=== PATIENT | male | born 1975 | race African-American/Black ===

== ENCOUNTER 2018-08-11 16:53 | Emergency (ER) | payer OTHER ==
[~2018-08-11] VITALS: Ht 170.2 cm; Wt 110.0 kg
[2018-08-11 17:04] VITALS: BP 132/100; PULSE 101; RESP 18; Ht 170.2 cm; Wt 110.0 kg
--- NOTE | 2018-08-11 17:29 | PSY ---
Date/Time of Note Date/Time of Note DATE: 08/11/18 TIME: 19:15 Psychiatric Subjective Eval Consent Pt consented to telemedicine: Yes Subjective Evaluation Patient location: emergency Chief Complaint: BIB RA FOR EVAL OF LEG SWELLING X 8MOS. [employer] W/ PT. NO SI OR HI History of present illness HPI: 43 yo male with ho psychosis, reports he is having AH of "chanting." Per nurse, pt called 911 reporting si. Pt adamantly denies si to MD before MD asked pt any questions. Reports mood is "unstable." Denies drug use. Past Psych Hx: + ho psych admits and - suicide attempts PMHx: obesity, "fib" Meds: not taking Allergies: solumedrol MSE: obese, normal though loud speech, somewhat uncooperative,irritable, no delusions organized, + ah denies si, impaired reliability/insight Imp: 43 yo male with psychosis. Reported si per notes and nurses but pt is denying this. The source of the discrepancy is unclear. voluntary psych admission utox d/w attending Assessment and Plan Recommendation/Plan Multiple antipsychotics: No Discharge Disposition: Psychiatric inpatient Legal Status: Voluntary JENNIFERKONGDaniel Aug 11, 2018 17:29
--- NOTE | 2018-08-11 17:58 | ERD ---
ER Documentation Chief Complaint Chief Complaint BIB RA FOR EVAL OF LEG SWELLING X 8MOS. [employer] W/ PT. NO SI OR HI HPI 43-year-old male who presents to the emergency room for multiple issues. His main complaint to me is that he has bilateral lower extremity swelling present for at least 8 months. He states "I might have heart failure ". However, he denies any chest pain or shortness of breath, no positional symptoms. Only nonspecific lower extremity edema. The patient has evidence of clinical morbid obesity. Additionally the patient had initially called 911 for possible suicidal ideation. He has underlying schizophrenia. He states that he denied any suicidal ideation by police officers telling me that he told the shield operator that he was suicidal. Patient denies that he is suicidal currently. He has no active plan. However, he does state that he wants to be admitted to a psychiatric hospital. No fevers chills or headache. ROS All systems reviewed and are negative except as per history of present illness. Allergies Allergies: Uncoded Allergies: SOLUMEDROL (Allergy, Unknown, 08/11/18) PMhx/Soc Anesthesia Reaction: No Hx Neurological Disorder: No Hx Respiratory Disorders: No Hx Cardiac Disorders: Yes (HEART FAILURE) Hx Psychiatric Problems: Yes (BIPOLAR SCHIZO) Hx Miscellaneous Medical Probl: No Hx Alcohol Use: No Hx Substance Use: No Hx Tobacco Use: Yes Smoking Status: Never smoker FmHx Family History: No diabetes Physical Exam Vitals Vital Signs Date Temp Pulse Resp B/P (MAP) Pulse Ox O2 O2 Flow FiO2 Time Delivery Rate 08/11/18 97.1 101 18 132/100 97 17:04 (111) Physical Exam General: Morbidly obese no acute distress Head: Normocephalic, atraumatic. Eyes: Pupils equally reactive, EOM intact ENT: Moist mucous membranes Neck: Supple, no lymphadenopathy Respiratory: Lungs clear bilaterally, no distress Cardiovascular: RRR, no murmurs, rubs, or gallops Abdominal: Soft, non-tender, non-distended, no peritoneal signs : Deferred MSK: Bilateral diffuse lower extremity nonpitting edema, no unilateral swelling, 5/5 strength Neurologic: Alert and oriented, moving all extremities, normal speech, no focal weakness, no cerebellar signs Skin: No rash Psych: Slightly disorganized, auditory hallucinations, denies suicidal ideation Result Diagram: 08/11/18175008/11/181750 Results 24 hrs Laboratory Tests Test 08/11/18 17:51 White Blood Count 13.6 10^3/ul Red Blood Count 5.54 10^6/ul Hemoglobin 14.6 g/dl Hematocrit 45.2 % Mean Corpuscular Volume 81.6 fl Mean Corpuscular Hemoglobin 26.4 pg Mean Corpuscular Hemoglobin Concent 32.3 g/dl Red Cell Distribution Width 14.4 % Platelet Count 206 10^3/UL Mean Platelet Volume 11.0 fl Immature Granulocytes % 0.800 % Neutrophils % 71.4 % Lymphocytes % 18.8 % Monocytes % 6.7 % Eosinophils % 2.0 % Basophils % 0.3 % Nucleated Red Blood Cells % 0.0 /100WBC Immature Granulocytes # 0.110 10^3/ul Neutrophils # 9.7 10^3/ul Lymphocytes # 2.6 10^3/ul Monocytes # 0.9 10^3/ul Eosinophils # 0.3 10^3/ul Basophils # 0.0 10^3/ul Nucleated Red Blood Cells # 0.0 10^3/ul Prothrombin Time 12.3 Sec Prothrombin Time Ratio 1.0 INR International Normalized Ratio 0.90 Activated Partial Thromboplast Time 28.4 Sec Sodium Level 141 mmol/L Potassium Level 4.1 mmol/L Chloride Level 105 mmol/L Carbon Dioxide Level 29 mmol/L Anion Gap 7 Blood Urea Nitrogen 12 mg/dl Creatinine 0.98 mg/dl Est Glomerular Filtrat Rate mL/min > 60 mL/min Glucose Level 156 mg/dl Calcium Level 9.4 mg/dl Total Bilirubin 0.7 mg/dl Direct Bilirubin 0.00 mg/dl Indirect Bilirubin 0.7 mg/dl Aspartate Amino Transf (AST/SGOT) 19 IU/L Alanine Aminotransferase (ALT/SGPT) 35 IU/L Alkaline Phosphatase 105 IU/L Troponin I < 0.012 ng/ml B-Type Natriuretic Peptide < 11 PG/ML Total Protein 7.2 g/dl Albumin 3.9 g/dl Globulin 3.30 g/dl Albumin/Globulin Ratio 1.18 Ethyl Alcohol Level < 10.0 mg/dl Procedures/MDM EKG, MONITORS, & DIAGNOSTIC IMAGING: EKG: I reviewed and interpreted a 12-lead EKG. Rhythm: Normal sinus rhythm ST Changes: No contiguous ST segment elevations T waves: No contiguous T wave inversions Impression: [No evidence of acute cardiac ischemia] CXR Chest x-ray: I reviewed and interpreted a 1 view of the chest Mediastinum: No enlargement Cardiac silhouette: No cardiomegaly Airspace: Clear lung sanchez bilaterally without evidence of pneumothorax Bones: No evidence of fracture BLE Duplex: Patient refused LAB INTERPRETATION: I reviewed the laboratory testing and it shows [no evidence of acute process] MEDICAL DECISION MAKING: The patient's medical complaint is bilateral lower extremity edema that seems to be consistent with his body habitus, morbid obesity and likely venous insufficiency. Low concern for DVT, no evidence of acute vascular occlusion. Patient will benefit from work-up to rule out hepatic, cardiac or renal failure. Duplex. However low pretest probability for these processes. More pressing is that the patient has underlying psychiatric illness and is requesting psychiatric placement. He denies suicidal ideation at this time. ER COURSE: * Telemetry medicine psychiatry is evaluated the patient and recommends voluntary placement. * The patient's laboratory testing and diagnostic imaging suggest baseline venous insufficiency there is nonspecific and can be managed on outpatient basis. No indication for Lasix. * The patient is medically clear for psychiatric placement. CONSULTATION: Telemetry medicine psychiatry DISPOSITION PLAN: Psychiatric evaluation recommends voluntary placement. Departure Diagnosis: Primary Impression: Peripheral edema Additional Impressions: Morbid obesity Schizophrenia Schizophrenia type: unspecified Qualified Codes: F20.9 - Schizophrenia, unspecified Condition: Stable VALERIO LOYA MD Aug 11, 2018 17:58
== END 2018-08-11 19:38 | disposition home or self-care (01) ==
LOC: E/R 16:53
DX: E66.01 Morbid (severe) obesity due to excess calories (principal); F20.9 Schizophrenia, unspecified; R60.0 Localized edema; I50.9 Heart failure, unspecified; Z68.38 Body mass index [BMI] 38.0-38.9, adult; Z87.891 Personal history of nicotine dependence
CPT/HCPCS: 36415; 71045; 80053; 80307; 83880; 84484; 85025; 85610; 85730; 93005; 93970

== ENCOUNTER 2018-08-11 21:30 | Emergency (ER) | payer SELFPAY ==
[~2018-08-11] VITALS: Ht 180.3 cm; Wt 191.0 kg
[2018-08-11 21:32] VITALS: BP 164/77; PULSE 75; RESP 24; Ht 180.3 cm; Wt 191.0 kg
--- NOTE | 2018-08-12 02:59 | ERD ---
ER Documentation Chief Complaint Chief Complaint PT reports hearing "chanting" voices and "everyone is after me" HPI This patient was seen earlier and placed on involuntary psychiatric admission however signed out AGAINST MEDICAL ADVICE. While in the waiting room the patient became belligerent and punched a information systems security developer. [employer] arrived. They asked for medical clearance and I feel the patient is medically clear at this point to be booked by [employer]. ROS All systems reviewed and are negative except as per history of present illness. Allergies Allergies: Uncoded Allergies: SOLUMEDROL (Allergy, Unknown, 08/11/18) PMhx/Soc Anesthesia Reaction: No Hx Neurological Disorder: No Hx Respiratory Disorders: No Hx Cardiac Disorders: Yes (HEART FAILURE) Hx Psychiatric Problems: Yes (BIPOLAR SCHIZO) Hx Miscellaneous Medical Probl: No Hx Alcohol Use: No Hx Substance Use: No Hx Tobacco Use: Yes Physical Exam Vitals Vital Signs Date Temp Pulse Resp B/P (MAP) Pulse Ox O2 O2 Flow FiO2 Time Delivery Rate 08/11/18 98.8 75 24 164/77 97 21:32 (106) Physical Exam Const: No acute distress Head: Atraumatic Eyes: Normal Conjunctiva ENT: Normal External Ears, Nose and Mouth. Neck: Full range of motion. No meningismus. Resp: Clear to auscultation bilaterally Cardio: Regular rate and rhythm, no murmurs Abd: Soft, non tender, non distended. Normal bowel sounds Skin: No petechiae or rashes Back: No midline or flank tenderness Ext: No cyanosis, or edema Neur: Awake and alert Psych: Normal Mood and Affect Procedures/MDM Medical decision makin-year-old male who is more than likely malingering. At this point I do not feel he is in any medical danger and is stable to be discharged in police custody. Departure Diagnosis: Primary Impression: In police custody Condition: Fair Patient Instructions: Prison Clearance ARCENIO LEIJA Aug 12, 2018 02:59
== END 2018-08-12 14:04 ==
LOC: E/R 21:30
DX: Z02.89 Encounter for other administrative examinations (principal); I50.9 Heart failure, unspecified; Z87.891 Personal history of nicotine dependence
CPT/HCPCS: 99283